=== PATIENT | male | born 1935 | race Two or more races ===

== ENCOUNTER 2018-03-17 14:20 | Outpatient (CLI) | payer OTHER | END 2018-03-17 14:22 | disposition home or self-care (01) | LOC: RAD 14:20 | DX: M54.5 Low back pain (principal) ==

== ENCOUNTER 2018-08-19 12:14 | Outpatient (CLI) | payer OTHER | END 2018-08-19 12:16 | disposition home or self-care (01) | LOC: RAD 12:14 | DX: R06.09 Other forms of dyspnea (principal); R06.02 Shortness of breath ==

== ENCOUNTER → 2019-06-03 | Outpatient (CLI) | payer OTHER | END | disposition home or self-care (01) | LOC: RAD 15:26 | DX: M48.062 Spinal stenosis, lumbar region with neurogenic claudication (principal); M54.16 Radiculopathy, lumbar region ==

== ENCOUNTER 2019-07-17 07:45 | Emergency (ER) | payer OTHER ==
[~2019-07-17] VITALS: Ht 188 cm; Wt 99.8 kg
== END 2019-07-17 15:27 | disposition home or self-care (01) ==
LOC: ER 07:45
DX: N40.1 Benign prostatic hyperplasia with lower urinary tract symptoms (principal); R33.8 Other retention of urine; R31.0 Gross hematuria

== ENCOUNTER 2019-09-17 11:16 | Outpatient (CLI) | payer OTHER ==
[2019-09-29] MEDS ORDERED: ATENOLOL-CHLOR1 EACH PO (14:02)
[2019-09-29] MEDS ORDERED: SPIRIVA RESPIMAT4 G1 IH (14:02)
[2019-09-29] MEDS ORDERED: PROAIR HFA8.5 GM IH (14:03)
== END 2019-09-17 11:22 | disposition home or self-care (01) ==
LOC: SONOGRAMA 11:16
DX: N40.1 Benign prostatic hyperplasia with lower urinary tract symptoms (principal); R33.8 Other retention of urine

== ENCOUNTER 2019-10-08 06:36 | Day surgery (SDC) | payer OTHER ==
[~2019-10-08] VITALS: Ht 188 cm; Wt 98.0 kg
[~2019-10-08 06:36] MED LIST: ATENOLOL-CHLOR1 EACH PO; PROAIR HFA8.5 GM IH; SPIRIVA RESPIMAT4 G1 IH
== END 2019-10-09 08:00 | disposition home or self-care (01) ==
LOC: CIR.AMB 06:36 → SURH 18:15 → CIR.AMB 18:15 → SURH 10-09 17:35
DX: N40.1 Benign prostatic hyperplasia with lower urinary tract symptoms (principal); R33.8 Other retention of urine

== ENCOUNTER 2020-12-27 15:19 | Outpatient (CLI) | payer OTHER | END 2020-12-27 15:29 | disposition HB | LOC: RAD 15:19 | DX: J45.998 Other asthma (principal); I10 Essential (primary) hypertension; J44.9 Chronic obstructive pulmonary disease, unspecified ==

== ENCOUNTER 2022-06-25 13:15 | Emergency (ER) | payer OTHER ==
[~2022-06-25] VITALS: Ht 188 cm; Wt 106.6 kg
[~2022-06-25 13:15] MED LIST changes: +DICLOFENAC SOD100 MG PO
[2022-06-25] MEDS ORDERED: FOSAMAX70 MG (13:37)
[2022-06-25] MEDS ORDERED: PROSCAR5 MG PO (13:51)
== END 2022-06-25 18:29 | disposition home or self-care (01) ==
LOC: ER 13:15
DX: S01.82XA Laceration with foreign body of other part of head, initial encounter (principal); W18.30XA Fall on same level, unspecified, initial encounter; Y93.01 Activity, walking, marching and hiking; Y92.410 Unspecified street and highway as the place of occurrence of the external cause; S89.92XA Unspecified injury of left lower leg, initial encounter; I10 Essential (primary) hypertension

== ENCOUNTER 2022-07-02 11:55 | Emergency (ER) | payer OTHER ==
[~2022-07-02] VITALS: Ht 188 cm; Wt 100.7 kg
[~2022-07-02 11:55] MED LIST changes: +FOSAMAX70 MG; +PROSCAR5 MG PO
== END 2022-07-02 14:19 | disposition home or self-care (01) ==
LOC: ER 11:55
DX: Z48.02 Encounter for removal of sutures (principal)

== ENCOUNTER 2023-03-07 12:44 | Emergency (ER) | payer OTHER ==
[~2023-03-07] VITALS: Ht 188 cm; Wt 105.7 kg
[2023-03-07] MEDS ORDERED: FINASTERIDE5 MG (13:10)
[2023-03-07] MEDS ORDERED: TRELEGY ELLIPT1 EAC1 (13:10)
[2023-03-07] MEDS ORDERED: ELIQUIS5 MG (13:10)
[2023-03-07] MEDS ORDERED: LEVOFLOXACIN500 MG (13:10)
[2023-03-07] MEDS ORDERED: ATORVASTATIN CA10 MG (13:11)
[2023-03-07] MEDS ORDERED: LOSARTAN POTASS50 MG (13:11)
[2023-03-07] MEDS ORDERED: NORVASC2.5 MG (13:11)
== END 2023-03-07 14:29 | disposition home or self-care (01) ==
LOC: ER 12:44
DX: N50.819 Testicular pain, unspecified (principal); I10 Essential (primary) hypertension